=== PATIENT | female | born 1945 | race Caucasian/White ===

== ENCOUNTER → 2023-07-15 14:57 | Outpatient (REF) | payer MEDICARE, OTHER, SELFPAY | LOC: WDC 14:57 | PROVIDERS: ATTENDING PHYSICIAN Nurse Practitioner | DX: Z12.31 Encounter for screening mammogram for malignant neoplasm of breast (principal) | CPT/HCPCS: 77063; 77067 ==

== ENCOUNTER → 2023-10-04 12:42 | Outpatient (REF) | payer MEDICARE, OTHER, SELFPAY ==
[2023-10-04 13:48] LABS: ALT (SGPT) 22 U/L (0-35); AST (SGOT) 28 U/L (14-36); Albumin 4.2 g/dl (3.5-5.0); Alkaline Phosphatase 55 U/L (38-126); Blood Urea Nitrogen 21 mg/dl (7-17); Calcium 9.2 mg/dl (8.4-10.2); Carbon Dioxide 30 mmol/L (22-30); Chloride 105 mmol/L (98-107); Glucose 144 mg/dl (70-99); HDL Cholesterol 72 mg/dl; LDL Cholesterol, Calculated 62 mg/dl; Potassium 4.4 mmol/L (3.5-5.1); Sodium 139 mmol/L (135-145); Total Bilirubin 0.7 mg/dl (0.2-1.3); Total Cholesterol 147 mg/dl (50-199); Total Protein 6.5 g/dl (6.3-8.2); Triglyceride 65 mg/dl (10-149); Very Low Density Lipoprotein 13 mg/dl (0-30); eGFR > 60.00
[2023-10-04 14:10] LABS: Glycohemoglobin (HgbA1c) 8.9 % (4.0-5.6)
[2023-10-04 14:15] LABS: TSH 2.57 uIU/ml (0.47-4.68)
[2023-10-04 18:48] LABS: Microalbumin, Random Urine < 0.6 mg/dl (0.6-1.7)
== END ==
LOC: OLABPV 12:42
PROVIDERS: ATTENDING PHYSICIAN Internal Medicine Endocrinology, Diabetes & Metabolism; OTHER PHYSICIAN Nurse Practitioner
DX: E10.65 Type 1 diabetes mellitus with hyperglycemia (principal); E04.2 Nontoxic multinodular goiter
CPT/HCPCS: 80053; 80061; 82043; 83036; 84443

== ENCOUNTER → 2023-11-18 10:33 | Outpatient (REF) | payer MEDICARE, OTHER, SELFPAY ==
[2023-11-18 11:47] LABS: % Basophils 1.2 % (0-2); % Eosinophils 5.2 % (0-6); % Immature Granulocytes 0.2 % (0-0.5); % Lymphocytes 34.1 % (20.5-51.1); % Monocytes 7.4 % (1.7-9.3); % Neutrophils 51.9 % (42.2-75.2); Absolute Basophils 0.1 10^3/uL (0-0.2); Absolute Eosinophils 0.2 10^3/uL (0-0.7); Absolute Lymphocytes 1.4 10^3/uL (1.2-3.4); Absolute Monocytes 0.3 10^3/uL (0.1-0.6); Absolute Neutrophils 2.1 10^3/uL (1.4-6.5); Hematocrit 35.6 % (37.0-47.0); Hemoglobin 12.1 g/dL (12.0-16.0); Mean Corpuscular Hgb 29.7 pg (27.0-31.0); Mean Corpuscular Volume 87.5 fL (81.0-99.0); Mean Platelet Volume 10.7 fL (7.4-10.4); Nucleated Red Blood Cells % 0 %; Platelet Count 190 10^3/uL (130-400); Red Blood Cell Count 4.07 10^6/uL (4.20-5.40); Red Cell Dist. Width 12.5 % (11.5-14.5); White Blood Cell Count 4.1 10^3/uL (4.8-10.8)
[2023-11-18 12:17] LABS: Erythrocyte Sed Rate 9 mm/hour (0-20)
[2023-11-18 12:45] LABS: HDL Cholesterol 66 mg/dl; Iron 89 ug/dl (37-170); LDL Cholesterol, Calculated 57 mg/dl; Total Cholesterol 137 mg/dl (50-199); Triglyceride 73 mg/dl (10-149); Very Low Density Lipoprotein 14 mg/dl (0-30)
[2023-11-18 12:51] LABS: C-Reactive Protein < 5.00 mg/L (0.0-10.00)
[2023-11-18 13:28] LABS: Ferritin 28.7 ng/ml (11.1-264.0)
== END ==
LOC: OLABPV 10:33
PROVIDERS: ATTENDING PHYSICIAN Nurse Practitioner
DX: R23.3 Spontaneous ecchymoses (principal); I10 Essential (primary) hypertension; E10.21 Type 1 diabetes mellitus with diabetic nephropathy; E78.5 Hyperlipidemia, unspecified; E11.9 Type 2 diabetes mellitus without complications
CPT/HCPCS: 36415; 80061; 82728; 83540; 85025; 85652; 86038; 86140

== ENCOUNTER → 2023-12-27 10:38 | Outpatient (REF) | payer MEDICARE, OTHER, SELFPAY ==
[2023-12-27 12:37] LABS: % Basophils 1.3 % (0-2); % Eosinophils 4.3 % (0-6); % Immature Granulocytes 0.2 % (0-0.5); % Lymphocytes 30.2 % (20.5-51.1); % Monocytes 6.7 % (1.7-9.3); % Neutrophils 57.3 % (42.2-75.2); Absolute Basophils 0.1 10^3/uL (0-0.2); Absolute Eosinophils 0.2 10^3/uL (0-0.7); Absolute Lymphocytes 1.4 10^3/uL (1.2-3.4); Absolute Monocytes 0.3 10^3/uL (0.1-0.6); Absolute Neutrophils 2.6 10^3/uL (1.4-6.5); Hematocrit 36.4 % (37.0-47.0); Hemoglobin 12.6 g/dL (12.0-16.0); Mean Corp Hgb Conc. 34.6 g/dL (33.0-37.0); Mean Corpuscular Hgb 30.6 pg (27.0-31.0); Mean Corpuscular Volume 88.3 fL (81.0-99.0); Mean Platelet Volume 10.9 fL (7.4-10.4); Nucleated Red Blood Cells % 0 %; Platelet Count 184 10^3/uL (130-400); Red Blood Cell Count 4.12 10^6/uL (4.20-5.40); Red Cell Dist. Width 12.5 % (11.5-14.5); White Blood Cell Count 4.6 10^3/uL (4.8-10.8)
[2023-12-27 12:44] LABS: ALT (SGPT) 20 U/L (0-35); AST (SGOT) 26 U/L (14-36); Albumin 4.1 g/dl (3.5-5.0); Alkaline Phosphatase 52 U/L (38-126); Blood Urea Nitrogen 20 mg/dl (7-17); Calcium 9.1 mg/dl (8.4-10.2); Carbon Dioxide 29 mmol/L (22-30); Chloride 104 mmol/L (98-107); Glucose 184 mg/dl (70-99); Potassium 4.5 mmol/L (3.5-5.1); Sodium 138 mmol/L (135-145); Total Bilirubin 0.9 mg/dl (0.2-1.3); Total Protein 6.1 g/dl (6.3-8.2); eGFR > 60.00
[2023-12-27 13:09] LABS: Glycohemoglobin (HgbA1c) 8.2 % (4.0-5.6); Vitamin D, 25-OH*** 34.6 ng/mL (30-80)
[2023-12-27 13:16] LABS: TSH 2.38 uIU/ml (0.47-4.68)
== END ==
LOC: OLABPV 10:38
PROVIDERS: ATTENDING PHYSICIAN Internal Medicine Endocrinology, Diabetes & Metabolism
DX: E10.65 Type 1 diabetes mellitus with hyperglycemia (principal); E55.9 Vitamin D deficiency, unspecified; E04.2 Nontoxic multinodular goiter
CPT/HCPCS: 36415; 80053; 82306; 83036; 84443; 85025

== ENCOUNTER → 2024-01-12 09:09 | Outpatient (REF) | payer MEDICARE, OTHER, SELFPAY | LOC: RCS 09:09 | PROVIDERS: ATTENDING PHYSICIAN Nurse Practitioner; FAMILY PHYSICIAN Internal Medicine | DX: I10 Essential (primary) hypertension (principal); E78.00 Pure hypercholesterolemia, unspecified; R06.09 Other forms of dyspnea | CPT/HCPCS: 93306 ==

== ENCOUNTER → 2024-01-31 13:27 | Outpatient (REF) | payer MEDICARE, OTHER, SELFPAY | LOC: RCS 13:27 | PROVIDERS: ATTENDING PHYSICIAN Nurse Practitioner; FAMILY PHYSICIAN Internal Medicine | DX: R06.09 Other forms of dyspnea (principal); I10 Essential (primary) hypertension; E78.00 Pure hypercholesterolemia, unspecified | CPT/HCPCS: 93017; 93350 ==

== ENCOUNTER → 2024-02-14 06:08 | Day surgery (SDC) | payer MEDICARE, OTHER, SELFPAY ==
[2024-02-10 13:56] VITALS: BMI 28.4
[2024-02-14] VITALS (10 sets, daily range): BP systolic 133–175; BP diastolic 56–99; BMI 27.5
[2024-02-14 06:59] LABS: Glucose - Point of Care 230 mg/dl (70-99)
[2024-02-14] MEDS: NSS 211 ML IV (07:13)
--- NOTE | 2024-02-14 08:29 | ITS.CL.CATH ---
Bricklayer Helper - Catheterization
Cardiac Catheterization
Procedure Report:
CARDIAC CATHETERIZATION REPORT
Date of Procedure: 02/14/2024
Referring: Lorenza Oconnor MD
Indication: Exertional dyspnea with apical ischemia on stress test
�
HEMODYNAMIC DATA
AO: 183/88
LV: 183/15
�
LEFT VENTRICULOGRAPHY: Normal segmental wall motion with EF 62%
�
CORONARY ANGIOGRAPHY
Dominance: Right
Left Main: Normal
LAD: The LAD is moderate to severely calcified. There is 50% proximal LAD stenosis just distal to a tiny first septal oracle wms consultant. There is a highly angulated 90% distal LAD stenosis spanning and involving the takeoff of the small third diagonal
branch. The LAD distal to this lesion is small in caliber mildly diffusely diseased. D1 is small. D2 is the major diagonal branch and has 40-50% ostial stenosis.
Circumflex: A medium distribution ramus intermedius branch is small in caliber with moderate to severe diffuse disease. The circumflex proper has mild luminal irregularities. OM1 is a small to medium size vessel with eccentric focal 70% proximal
stenosis (seen best in the ALBANIAN 30 caudal 35 view). There is a medium sized OM 3 and the circumflex terminates with a large OM 4 which has trivial luminal disease.
RCA: Dominant mildly calcified vessel with mild luminal irregularities in the RCA proper. The large PDA has 50% distal stenosis. RPL 1 is small with 40% mid stenosis. RPL 2 is a medium size vessel with 60-70% ostial stenosis. The RCA terminates
with a small RPL 3.
�
Closure Device: None-the procedure was performed via the right radial artery. The Nakul's test was normal prior to the procedure.
�
Radiation (mGy): 294
DAP (cm2.Gy): 26.3
Fluoroscopy time: 1.7 minutes
�
CONCLUSIONS
1:�Multivessel CAD as described
2:�Given the unfavorable features of the mid to distal LAD lesion for PCI (including severe angulation, small diameter vessel, and involvement of a small diagonal branch which would likely be sacrificed), I think medical therapy is best option at
this time. We will add metoprolol XL 25 mg daily and SL NTG for prn use. When she is seen in office would consider adding Imdur to regimen. If her current mild exertional symptoms progress then an attempt at PCI of the mid to distal LAD lesion would
be advisable for symptom control. The circumflex target (OM3) too small for grafting and grafting the distal LAD does not revascularize a large distribution. Accordingly, would not consider CABG at this time,
�
�
Copy to: Lorenza Oconnor MD, Cindy Grewal MD
�
Kong Greenberg MD, [facility], [facility]
--- NOTE | 2024-02-14 08:40 | PTCARENOTE ---
0811-patient requested to use own insulin pen (as this pen is bluetooth and connected to her ronna) in order to track her blood glucose. Per GARMENT PARTS CUTTER MACHINE, ok to use. Patient gave self 5 units-verified with by this RN. Patient then states, 'now I am able to
eat my breakfast.'
[2024-02-14] MEDS: LOPRESSOR 25 MG PO (08:45)
--- NOTE | 2024-02-14 08:52 | PTCARENOTE ---
0881-patient requested to use own insulin pen (as this pen is bluetooth and connected to her ronna) in order to track her blood glucose. Per COMPUTER DISCOVERY TEACHER, ok to use. Patient gave self 5 units-verified with by this RN. Patient then states, 'now I am able to
eat my breakfast.'
== END | disposition home or self-care (01) ==
LOC: CATH 06:08
PROVIDERS: ATTENDING PHYSICIAN Internal Medicine Cardiovascular Disease; FAMILY PHYSICIAN Internal Medicine; OTHER PHYSICIAN Internal Medicine Cardiovascular Disease
DX: I25.10 Atherosclerotic heart disease of native coronary artery without angina pectoris (principal); I25.84 Coronary atherosclerosis due to calcified coronary lesion; R06.09 Other forms of dyspnea; Z87.891 Personal history of nicotine dependence; I10 Essential (primary) hypertension; E78.5 Hyperlipidemia, unspecified; M85.80 Other specified disorders of bone density and structure, unspecified site; Z85.3 Personal history of malignant neoplasm of breast; E11.9 Type 2 diabetes mellitus without complications; K44.9 Diaphragmatic hernia without obstruction or gangrene; Z79.82 Long term (current) use of aspirin; Z79.4 Long term (current) use of insulin; Z91.09 Other allergy status, other than to drugs and biological substances
CPT/HCPCS: 82962; 93458; C1894; Q9967

== ENCOUNTER → 2024-03-20 10:48 | Outpatient (REF) | payer MEDICARE, OTHER, SELFPAY ==
[2024-03-20 11:58] LABS: Glycohemoglobin (HgbA1c) 8.2 % (4.0-5.6)
[2024-03-20 13:46] LABS: ALT (SGPT) 22 U/L (0-35); AST (SGOT) 30 U/L (14-36); Alkaline Phosphatase 33 U/L (38-126); Blood Urea Nitrogen 23 mg/dl (7-17); Calcium 8.7 mg/dl (8.4-10.2); Carbon Dioxide 25 mmol/L (22-30); Chloride 107 mmol/L (98-107); Glucose 80 mg/dl (70-99); Potassium 4.3 mmol/L (3.5-5.1); Sodium 145 mmol/L (135-145); Total Protein 6.2 g/dl (6.3-8.2); eGFR > 60.00
== END ==
LOC: OLABPV 10:48
PROVIDERS: ATTENDING PHYSICIAN Internal Medicine Endocrinology, Diabetes & Metabolism
DX: E10.65 Type 1 diabetes mellitus with hyperglycemia (principal)
CPT/HCPCS: 36415; 80053; 83036

== ENCOUNTER → 2024-06-19 09:08 | Outpatient (REF) | payer MEDICARE, OTHER, SELFPAY ==
[2024-06-19 11:40] LABS: % Basophils 1.7 % (0-2); % Immature Granulocytes 0.2 % (0-0.5); % Lymphocytes 32.4 % (20.5-51.1); % Monocytes 7.7 % (1.7-9.3); Absolute Basophils 0.1 10^3/uL (0-0.2); Absolute Eosinophils 0.2 10^3/uL (0-0.7); Absolute Lymphocytes 1.6 10^3/uL (1.2-3.4); Absolute Monocytes 0.4 10^3/uL (0.1-0.6); Absolute Neutrophils 2.6 10^3/uL (1.4-6.5); Hematocrit 38.1 % (37.0-47.0); Hemoglobin 12.7 g/dL (12.0-16.0); Mean Corp Hgb Conc. 33.3 g/dL (33.0-37.0); Mean Corpuscular Hgb 30.2 pg (27.0-31.0); Mean Corpuscular Volume 90.5 fL (81.0-99.0); Mean Platelet Volume 10.9 fL (7.4-10.4); Nucleated Red Blood Cells % 0 %; Platelet Count 195 10^3/uL (130-400); Red Blood Cell Count 4.21 10^6/uL (4.20-5.40); Red Cell Dist. Width 12.3 % (11.5-14.5); White Blood Cell Count 4.8 10^3/uL (4.8-10.8)
[2024-06-19 11:58] LABS: ALT (SGPT) 25 U/L (0-35); AST (SGOT) 28 U/L (14-36); Albumin 4.1 g/dl (3.5-5.0); Alkaline Phosphatase 54 U/L (38-126); Blood Urea Nitrogen 22 mg/dl (7-17); Calcium 9.1 mg/dl (8.4-10.2); Carbon Dioxide 29 mmol/L (22-30); Chloride 103 mmol/L (98-107); Glucose 141 mg/dl (70-99); HDL Cholesterol 64 mg/dl; LDL Cholesterol, Calculated 48 mg/dl; Potassium 4.3 mmol/L (3.5-5.1); Sodium 139 mmol/L (135-145); Total Bilirubin 0.7 mg/dl (0.2-1.3); Total Cholesterol 123 mg/dl (50-199); Total Protein 6.3 g/dl (6.3-8.2); Triglyceride 55 mg/dl (10-149); Very Low Density Lipoprotein 11 mg/dl (0-30); eGFR > 60.00
[2024-06-19 13:47] LABS: Glycohemoglobin (HgbA1c) 8.9 % (4.0-5.6)
== END ==
LOC: OLABPV 09:08
PROVIDERS: ATTENDING PHYSICIAN Internal Medicine Endocrinology, Diabetes & Metabolism
DX: E10.65 Type 1 diabetes mellitus with hyperglycemia (principal)
CPT/HCPCS: 36415; 80053; 80061; 83036; 85025

== ENCOUNTER → 2024-08-17 10:11 | Outpatient (REF) | payer MEDICARE, OTHER, SELFPAY ==
[2024-08-17 12:18] LABS: Albumin 4.1 g/dl (3.5-5.0); Blood Urea Nitrogen 20 mg/dl (7-17); Calcium 9.3 mg/dl (8.4-10.2); Carbon Dioxide 29 mmol/L (22-30); Chloride 105 mmol/L (98-107); Glucose 109 mg/dl (70-99); Phosphorus 3.7 mg/dl (2.5-4.5); Potassium 4.5 mmol/L (3.5-5.1); Sodium 138 mmol/L (135-145); eGFR > 60.00
== END ==
LOC: OLABPV 10:11
PROVIDERS: ATTENDING PHYSICIAN Internal Medicine Cardiovascular Disease
DX: I10 Essential (primary) hypertension (principal)
CPT/HCPCS: 36415; 80069

== ENCOUNTER → 2024-08-28 17:33 | Outpatient (REF) | payer MEDICARE, OTHER, SELFPAY | LOC: WDC 17:33 | PROVIDERS: ATTENDING PHYSICIAN Nurse Practitioner; FAMILY PHYSICIAN Internal Medicine | DX: Z12.31 Encounter for screening mammogram for malignant neoplasm of breast (principal); Z12.39 Encounter for other screening for malignant neoplasm of breast | CPT/HCPCS: 77063; 77067 ==

== ENCOUNTER 2024-09-04 15:41 | Emergency (ER) | payer MEDICARE, OTHER, SELFPAY ==
[2024-09-04 16:02] LABS: % Basophils 0.9 % (0-2); % Eosinophils 3.2 % (0-6); % Immature Granulocytes 0.2 % (0-0.5); % Lymphocytes 23.7 % (20.5-51.1); Absolute Basophils 0.1 10^3/uL (0-0.2); Absolute Eosinophils 0.2 10^3/uL (0-0.7); Absolute Lymphocytes 1.3 10^3/uL (1.2-3.4); Absolute Monocytes 0.3 10^3/uL (0.1-0.6); Absolute Neutrophils 3.8 10^3/uL (1.4-6.5); Hematocrit 35.6 % (37.0-47.0); Hemoglobin 12.3 g/dL (12.0-16.0); Mean Corp Hgb Conc. 34.6 g/dL (33.0-37.0); Mean Corpuscular Volume 86.8 fL (81.0-99.0); Mean Platelet Volume 9.8 fL (7.4-10.4); Nucleated Red Blood Cells % 0 %; Platelet Count 194 10^3/uL (130-400); Red Cell Dist. Width 12.2 % (11.5-14.5); White Blood Cell Count 5.7 10^3/uL (4.8-10.8)
[2024-09-04 16:23] LABS: ALT (SGPT) 25 U/L (0-35); AST (SGOT) 27 U/L (14-36); Alkaline Phosphatase 60 U/L (38-126); Blood Urea Nitrogen 26 mg/dl (7-17); Calcium 9.6 mg/dl (8.4-10.2); Carbon Dioxide 28 mmol/L (22-30); Chloride 105 mmol/L (98-107); Glucose 240 mg/dl (70-99); Potassium 4.6 mmol/L (3.5-5.1); Sodium 140 mmol/L (135-145); Total Bilirubin 0.6 mg/dl (0.2-1.3); Total Protein 6.3 g/dl (6.3-8.2); eGFR > 60.00
[2024-09-04 16:33] LABS: Troponin I < 0.012 ng/ml
[2024-09-04 17:21] VITALS: BP 191/84
[2024-09-04 18:15] VITALS: BP 159/76
[2024-09-04 18:19] VITALS: BMI 29.8
[2024-09-04 18:29] LABS: Glucose - Point of Care 113 mg/dl (70-99)
[2024-09-04 19:07] LABS: Troponin I < 0.012 ng/ml
--- NOTE | 2024-09-04 19:17 | ED.GENMED ---
History of Present Illness
General
Chief Complaint: Chest Pain
Source: patient
Exam Limitations: none
Time Seen by Provider: 09/04/24 17:25
Nursing documentation reviewed up to this point in time: agreed with
History of Present Illness
History of Present Illness:
Patient to ED with complaint of left chest pain. Reports sharp shooting pain. Lasts for a few seconds and then resolves. Symptoms started this afternoon. No aggravating or alleviating factors. Denies n/v/diaphoresis. No SOB. Brought self to
ED for eval. No prior history of same. Currently asymptomatic.
Past History
Past History
ED Past Medical History: Cancer, HTN, Hypercholesterolemia and IDDM
ED Past Surgical History: Cardiac and Other
Social History
Tobacco: Non-smoker
Alcohol: None
Drug: None
Living: with family
Review of Systems
Review of Systems
Allergies reviewed?: Yes
All Other Systems: ROS reviewed and negative except as documented in HPI and ROS
EENT: Reports no symptoms
Respiratory: Reports no symptoms
Cardiac: Reports chest pain (left sided chest pain. Sharp shooting pain)
ABD/GI: Reports no symptoms
: Reports no symptoms
Skin: Reports no symptoms
Neurological: Reports no symptoms
Psychiatric: Reports no symptoms
Phy Exam
General Physical Exam
General Presentation: well appearing and no apparent distress
General age: appears stated age
General Skin: warm and dry
General Habitus: normal
Cardiovascular Exam
Cardiovascular Exam: regular rate/rhythm and no edema
Pulmonary Exam
Pulmonary Exam: lungs clear and no respiratory distress
Musculoskeletal Exam
Musculoskeletal Exam: full ROM and neuro vasc intact
Skin Exam
Skin Exam: normal color, warm/dry and no rash
Psychiatric Exam
Psychiatric Exam: normal mood/affect
Scores
Heart Score for Chest Pain Patients
STEMI patient?: No
History: Slightly or Non-Suspicious
ECG: Normal
Age: >/= 65 years
Risk Factors: >/= 3 Risk Factors or History of CAD
Troponin: </= Normal Limit
Heart Score for Chest Pain Patients: 4
Heart Score Risk: 20.3% MACE over next 6 weeks
Course
Orders/Labs/Results
Orders:
Orders
09/04/24 15:42
Electrocardiogram (*1) Urgent
Reason for Study: Chest Pain
EKG- Treatment ONCE
09/04/24 15:53
Complete Blood Count/With Diff Urgent
Comprehensive Metabolic Panel Urgent
Troponin I Urgent
09/04/24 17:36
Bedside Glucose- Treatment ONCE
09/04/24 18:35
Troponin I Urgent
Abnormal Lab Results
09/04/24 09/04/24
15:53 18:28
RBC 4.10 L 10^6/uL
(4.20-5.40)
Hct 35.6 L %
(37.0-47.0)
BUN 26 H mg/dl
(7-17)
Glucose 240 H mg/dl
(70-99)
POC Glucose 113 H mg/dl
(70-99)
09/04/24 15:53
09/04/24 15:53
Vital Signs
Initial and Last Documented VS:
Initial Vital Signs
Temp Pulse Resp Pulse Ox
98.3 F 87 15 98
09/04/24 15:46 09/04/24 15:46 09/04/24 15:46 09/04/24 15:46
Last Documented Vital Signs
Temp Pulse Resp BP Pulse Ox
98.1 F 69 13 159/76 98
09/04/24 18:15 09/04/24 18:35 09/04/24 18:35 09/04/24 18:15 09/04/24 18:15
*Pulse Oximetry
Patient hypoxic: no
*EKG
Interpretation: normal
Rate: normal
Rhythm: sinus
*Critical Care Note
Total Time (30-74mins, 75-104mins- exclusive of procedures): Not Applicable
Update Note
Update Note:
Patient to ED for eval of left sided sharp shooting chest pain. Symptoms last for a few seconds and resolve. SHe has remained symptom free in ED. VSS. Labs reviewed, troponin neg x 2. EKG reviewed, NSR. Will discharge home and she will follow
upw ti PCP in AM. Given instructions on s/s to return to ED and she is agaeeable to plan.
ED Attending Note
-
Portions of this chart may have been created with voice recognition software.� Occasional wrong word or��sound alike� substitutions may have occurred due to the inherent limitations of voice recognition software.
Discharge Plan
Departure
Patient Disposition: Home (Routine Discharge)
Date of Disposition: 09/04/24
Time of Disposition: 19:16
Patient with high blood pressure during this ER visit?: No
Condition: Good
Covid-19: Not Applicable
Discharge Problem:
Chest pain
Instructions: Chest Pain PCP Follow Up
Prescriptions:
No Action
aspirin 81 MG tablet,delayed release (DR/EC)
81 mg PO DAILY
lisinopril 10 MG tablet
20 mg PO DAILY
Humalog
0 units INFUSION DAILY
Patient Comments:
per sliding scale 1 unit of insulin for every 5 carbs
Multivitamin
1 tab PO DAILY
Align (B.infantis) 4 MG capsule
4 mg PO DAILY
atorvastatin 20 mg Tablet
20 mg PO QPM
insulin degludec [Tresiba U-100 Insulin] 100 unit/mL Solution
22 unit SC DAILY
Patient Comments:
Patient took 16 units per MD this am
polyethylene glycol 3350 [Miralax] 17 gram Powder In Packet
17 g PO MOFR
risedronate 150 mg Tablet
150 mg PO QMONTH
nitroglycerin 0.4 mg tablet, sublingual
0.4 mg sublingual [id number] PRN (Reason: chest pain) Qty: 25 5RF
metoprolol succinate 25 mg tablet extended release 24 hr
25 mg PO DAILY Qty: 90 10RF
Referrals:
Cindy Grewal MD [Family Provider] - Tomorrow
Activity Restrictions/Additional Instructions:
Return to the emergency department immediately for any changes in/worsening of your symptoms.
Interventions
Interventions:
*Risk Screen - Suicide Last Done: 09/04/24 15:46
*General Assessment Last Done: 09/04/24 15:46
*Neglect/Abuse Screening Last Done: 09/04/24 15:46
*ED- Fall Risk Assessment Last Done: 09/04/24 18:22
*ED COVID-19 Vaccine History Last Done: 09/04/24 15:46
ED- Cardiac Assessment Last Done: 09/04/24 18:20
Discharge Date and Time
Print Language: TAJIK
== END 2024-09-04 19:50 | disposition home or self-care (01) ==
LOC: EMR 15:41
PROVIDERS: Emergency Medicine; Nurse Practitioner; EMERGENCY PHYSICIAN Emergency Medicine; FAMILY PHYSICIAN Internal Medicine
DX: R07.89 Other chest pain (principal)
CPT/HCPCS: 99284; 80053; 82962; 84484; 85025; 93005

== ENCOUNTER → 2024-10-02 10:12 | Outpatient (REF) | payer MEDICARE, OTHER, SELFPAY ==
[2024-10-02 11:26] LABS: ALT (SGPT) 25 U/L (0-35); AST (SGOT) 27 U/L (14-36); Alkaline Phosphatase 54 U/L (38-126); Blood Urea Nitrogen 23 mg/dl (7-17); Calcium 9.4 mg/dl (8.4-10.2); Carbon Dioxide 28 mmol/L (22-30); Chloride 107 mmol/L (98-107); Glucose 170 mg/dl (70-99); Potassium 4.3 mmol/L (3.5-5.1); Sodium 142 mmol/L (135-145); Total Bilirubin 0.8 mg/dl (0.2-1.3); Total Protein 6.3 g/dl (6.3-8.2); eGFR > 60.00
[2024-10-02 12:01] LABS: Glycohemoglobin (HgbA1c) 8.2 % (4.0-5.6)
[2024-10-02 12:15] LABS: Vitamin D, 25-OH*** 39.9 ng/mL (30-80)
[2024-10-02 12:48] LABS: Microalbumin, Random Urine 0.8 mg/dl (0.6-1.7); Microalbumin/creatinine Ratio 8.3 mg/g
== END ==
LOC: OLABPV 10:12
PROVIDERS: ATTENDING PHYSICIAN Internal Medicine Endocrinology, Diabetes & Metabolism
DX: E10.65 Type 1 diabetes mellitus with hyperglycemia (principal); E55.9 Vitamin D deficiency, unspecified
CPT/HCPCS: 36415; 80053; 82043; 82306; 82570; 83036

== ENCOUNTER → 2024-11-12 10:58 | Outpatient (REF) | payer MEDICARE, OTHER, SELFPAY | LOC: RAD 10:58 | PROVIDERS: ATTENDING PHYSICIAN Nurse Practitioner | DX: M79.645 Pain in left finger(s) (principal) | CPT/HCPCS: 73130 ==

== ENCOUNTER 2024-11-27 16:15 | Emergency (ER) | payer MEDICARE, OTHER, SELFPAY ==
[2024-11-27 16:18] VITALS: BP 162/81
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
== END 2024-11-27 17:20 | disposition home or self-care (01) ==
LOC: EMR 16:15
PROVIDERS: EMERGENCY PHYSICIAN Emergency Medicine; FAMILY PHYSICIAN Internal Medicine
DX: S62.614A Displaced fracture of proximal phalanx of right ring finger, initial encounter for closed fracture (principal); V89.2XXA Person injured in unspecified motor-vehicle accident, traffic, initial encounter; I10 Essential (primary) hypertension
CPT/HCPCS: 99283; 29125; 73130

== ENCOUNTER → 2024-12-21 11:51 | Outpatient (REF) | payer MEDICARE, OTHER, SELFPAY ==
[2024-12-21 13:00] LABS: ALT (SGPT) 32 U/L (0-35); AST (SGOT) 26 U/L (14-36); Albumin 3.7 g/dl (3.5-5.0); Alkaline Phosphatase 56 U/L (38-126); Blood Urea Nitrogen 19 mg/dl (7-17); Calcium 8.5 mg/dl (8.4-10.2); Carbon Dioxide 26 mmol/L (22-30); Chloride 110 mmol/L (98-107); Glucose 185 mg/dl (70-99); Potassium 4.1 mmol/L (3.5-5.1); Sodium 139 mmol/L (135-145); Total Protein 5.9 g/dl (6.3-8.2); eGFR > 60.00
[2024-12-22 10:30] LABS: Glycohemoglobin (HgbA1c) 8.2 % (4.0-5.6)
== END ==
LOC: OLABPV 11:51
PROVIDERS: ATTENDING PHYSICIAN Internal Medicine Endocrinology, Diabetes & Metabolism
DX: E10.65 Type 1 diabetes mellitus with hyperglycemia (principal)
CPT/HCPCS: 36415; 80053; 83036

== ENCOUNTER → 2025-01-02 08:40 | Outpatient (REF) | payer MEDICARE, OTHER, SELFPAY | LOC: RCS 08:40 | PROVIDERS: ATTENDING PHYSICIAN Internal Medicine Cardiovascular Disease; FAMILY PHYSICIAN Internal Medicine | DX: I25.10 Atherosclerotic heart disease of native coronary artery without angina pectoris (principal); R94.31 Abnormal electrocardiogram [ECG] [EKG] | CPT/HCPCS: 93306 ==

== ENCOUNTER → 2025-04-02 11:44 | Outpatient (REF) | payer MEDICARE, OTHER, SELFPAY ==
[2025-04-02 12:27] LABS: Hematocrit 35.5 % (37.0-47.0); Hemoglobin 11.8 g/dL (12.0-16.0); Mean Corp Hgb Conc. 33.2 g/dL (33.0-37.0); Mean Corpuscular Volume 87.2 fL (81.0-99.0); Nucleated Red Blood Cells % 0 %; Platelet Count 199 10^3/uL (130-400); Red Cell Dist. Width 12.5 % (11.5-14.5)
[2025-04-02 12:31] LABS: ALT (SGPT) 25 U/L (0-35); AST (SGOT) 26 U/L (14-36); Albumin 3.8 g/dl (3.5-5.0); Alkaline Phosphatase 52 U/L (38-126); Blood Urea Nitrogen 20 mg/dl (7-17); Calcium 9.1 mg/dl (8.4-10.2); Carbon Dioxide 30 mmol/L (22-30); Chloride 106 mmol/L (98-107); Glucose 150 mg/dl (70-99); Potassium 4.0 mmol/L (3.5-5.1); Sodium 137 mmol/L (135-145); Total Protein 6.2 g/dl (6.3-8.2); eGFR > 60.00
[2025-04-02 12:47] LABS: Glycohemoglobin (HgbA1c) 8.6 % (4.0-5.6)
[2025-04-02 13:02] LABS: TSH 2.45 uIU/ml (0.47-4.68)
== END ==
LOC: OLABPV 11:44
PROVIDERS: ATTENDING PHYSICIAN Internal Medicine Endocrinology, Diabetes & Metabolism
DX: E10.65 Type 1 diabetes mellitus with hyperglycemia (principal); E04.2 Nontoxic multinodular goiter
CPT/HCPCS: 36415; 80053; 83036; 84443; 85025